=== PATIENT | female | born 2000 | race American Indian/Alaskan Native ===

== ENCOUNTER 2021-01-17 13:12 | Emergency (ER) | payer MEDICAID ==
[2021-01-17] MEDS ORDERED: ONDANSETRON 4 MG/2 ML INJ IV ONE (13:35)
[2021-01-17] MEDS ORDERED: SODIUM CHLORIDE 0.9% 1000 ML 1,000 ML IV ONE (13:35)
--- NOTE | 2021-01-17 13:40 | Emergency Department Report ---
ED General Adult HPI - General Stated complaint: OVERDOSE Time Seen by Provider: 01/17/21 13:35 Source: patient, EMS - History of Present Illness Initial comments: Patient is 20 years old female with no significant past medical history. Patient brought to the emergency room via EMS from home. EMS stated that patient was found unresponsive. Patient received 1 mg of Narcan and patient started waking up. Upon arrival to the ER patient is alert, oriented x3. Patient is actively vomiting. Patient stated that she took 1 tablets of Roxicodone to help with her abdominal pain. Patient stated that she has been drinking alcohol too. Patient denied any fever or chills. No chest pain or shortness of breath. Patient denied any suicidal or homicidal ideation. Patient stated that she took the pill just to help with her pain. No visual or auditory hallucination. -: This morning - Related Data Allergies Allergy/AdvReac Type Severity Reaction Status Date / Time guaifenesin [From Robitussin] Allergy Unknown Verified 01/17/21 13:45 ED Review of Systems ROS: Stated complaint: OVERDOSE Other details as noted in HPI Comment: All other systems reviewed and negative Constitutional: denies: chills, fever Respiratory: denies: cough, shortness of breath, SOB with exertion Cardiovascular: denies: chest pain, palpitations Gastrointestinal: abdominal pain, nausea, vomiting. denies: diarrhea, constipation, hematemesis, melena, hematochezia Musculoskeletal: denies: back pain Neurological: denies: headache, weakness, numbness, paresthesias, confusion Psychiatric: denies: depression, auditory hallucinations, visual hallucinations, homicidal thoughts, suicidal thoughts ED Physical Exam - General General appearance: alert, in no apparent distress, other (Patient is actively vomiting.) - Head Head exam: Present: atraumatic, normocephalic, normal inspection - Eye Eye exam: Present: normal appearance, PERRL - ENT ENT exam: Present: normal exam - Neck Neck exam: Present: normal inspection, full ROM. Absent: tenderness, meningismus - Respiratory Respiratory exam: Present: normal lung sounds bilaterally - Cardiovascular Cardiovascular Exam: Present: regular rate, normal rhythm, normal heart sounds - GI/Abdominal GI/Abdominal exam: Present: soft, normal bowel sounds. Absent: distended, tenderness, guarding, rebound, rigid, organomegaly, mass, bruit, pulsatile mass, hernia - Extremities Exam Extremities exam: Present: normal inspection, full ROM, normal capillary refill. Absent: tenderness - Back Exam Back exam: Present: normal inspection, full ROM. Absent: CVA tenderness (R), CVA tenderness (L) - Neurological Exam Neurological exam: Present: alert, oriented X3, CN II-XII intact, normal gait, reflexes normal. Absent: motor sensory deficit - Psychiatric Psychiatric exam: Present: normal mood - Skin Skin exam: Present: warm, intact, normal color ED Course Vital Signs 01/17/21 01/17/21 01/17/21 13:34 13:42 13:46 Pulse Rate 79 74 65 Respiratory 11 L 11 L Rate Blood Pressure 115/74 115/74 O2 Sat by Pulse 100 99 Oximetry 01/17/21 01/17/21 01/17/21 14:00 14:22 14:31 Pulse Rate 77 65 Respiratory 15 14 13 Rate Blood Pressure 118/57 O2 Sat by Pulse 100 100 100 Oximetry 01/17/21 01/17/21 01/17/21 14:45 15:01 15:15 Pulse Rate 82 103 H 122 H Respiratory 6 L 22 25 H Rate Blood Pressure 100/62 106/63 106/63 O2 Sat by Pulse 90 99 97 Oximetry 01/17/21 01/17/21 01/17/21 15:31 15:45 17:56 Pulse Rate 100 H 106 H Respiratory 18 19 Rate Blood Pressure 117/55 124/60 128/78 O2 Sat by Pulse 100 100 100 Oximetry ED Medical Decision Making - Lab Data Result diagrams: 01/17/21 13:55 01/17/21 13:55 - Medical Decision Making Patient is 20 years old female with no significant past medical history. Patient brought to the emergency room via EMS from home. EMS stated that patient was found unresponsive. Patient received 1 mg of Narcan and patient started waking up. Upon arrival to the ER patient is alert, oriented x3. Patient is actively vomiting. Patient stated that she took 1 tablets of Roxicodone to help with her abdominal pain. Patient stated that she has been drinking alcohol too. Patient denied any fever or chills. No chest pain or shortness of breath. Patient denied any suicidal or homicidal ideation. Patient stated that she took the pill just to help with her pain. No visual or auditory hallucination. Patient stated that she is feeling much better. Patient is alert, oriented x3 in no acute distress. Labs reviewed and is unremarkable. Patient given prescription for Zofran and advised to follow-up with her primary care physician in the next 2 to 3 days and to return to the ER if she develop any new symptoms. Critical care attestation.: If time is entered above; I have spent that time in minutes in the direct care of this critically ill patient, excluding procedure time. ED Disposition Clinical Impression: Altered mental status, Polysubstance abuse, Acute nausea with nonbilious vomiting Disposition: DC-01 TO HOME OR SELFCARE Is pt being admited?: No Condition: Stable Instructions: Substance Use Disorder, Nausea and Vomiting, Adult Referrals: PRIMARY CARE, [Primary Care Provider] - 3-5 Days
[2021-01-17 14:10] LABS: Basophils % (Auto) 0.2 % (0.0-1.8); Eosinophils # (Auto) 0.1 K/mm3 (0.0-0.4); Eosinophils % (Auto) 0.7 % (0.0-4.3); Hemoglobin 12.7 gm/dl (10.1-14.3); Lymphocytes # (Auto) 2.9 K/mm3 (1.2-5.4); Lymphocytes % (Auto) 16.9 % (13.4-35.0); Mean Corpuscular HGB Conc 33 % (30-34); Mean Corpuscular Volume 80 fl (79-97); Monocytes # (Auto) 1.4 K/mm3 (0.0-0.8); Platelet Count 265 K/mm3 (140-440); Red Blood Count 4.84 M/mm3 (3.65-5.03); Red Cell Distribution Width 13.8 % (13.2-15.2)
[2021-01-17 14:39] LABS: Alanine Aminotransferase 12 units/L (7-56); Albumin 4.2 g/dL (3.9-5); Blood Urea Nitrogen 11 mg/dL (7-17); Calcium 7.8 mg/dL (8.4-10.2); Hemolysis Index 6
[2021-01-17 14:43] LABS: BUN/Creatinine Ratio 16; Bilirubin,Direct < 0.2 mg/dL (0-0.2)
[2021-01-17] MEDS ORDERED: NALOXONE 0.4 MG/1 ML INJ IV ONE (14:48)
[2021-01-17] MEDS ORDERED: NALOXONE 2 MG/2 ML INJ ONE (14:51)
[2021-01-17 16:10] LABS: Bilirubin,Urine NEG (Negative); Blood,Urine NEG (Negative); Color,Urine Yellow (Yellow); Hyaline Casts,Urine 1 /LPF; Mucus,Urine FEW /HPF; Urobilinogen,Urine < 2.0 mg/dL (<2.0)
[2021-01-17 16:18] LABS: Amphetamine Screen,Urine PRESUMPTIVE NEGATIVE; Benzodiazepines Screen,Urine PRESUMPTIVE NEGATIVE; Cannabinoid Screen,Urine PRESUMPTIVE POSITIVE; Cocaine Screen,Urine PRESUMPTIVE NEGATIVE; Methadone Screen,Urine PRESUMPTIVE NEGATIVE; Opiate Screen,Urine PRESUMPTIVE NEGATIVE
[2021-01-17 18:10] VITALS: BP 128/78
== END 2021-01-17 18:20 | disposition home or self-care (01) ==
LOC: ED 13:12
DX: R41.82 Altered mental status, unspecified (principal); F19.10 Other psychoactive substance abuse, uncomplicated; R11.2 Nausea with vomiting, unspecified; Z88.8 Allergy status to other drugs, medicaments and biological substances
CPT/HCPCS: 36415; 80048; 80076; 80307; 81001; 83690; 84703; 85025; 96361; 96374; 96375; 99284; J2310; J2405; J7030; 80320; G0480